=== PATIENT | female | born 1985 | race Two or more races ===

== ENCOUNTER 2025-05-02 07:05 | Day surgery (SDC) | payer MEDICAID, SELFPAY ==
[2025-05-01 09:52] VITALS: BMI 33.4
--- NOTE | 2025-05-01 10:05 | EKG_ITS ---
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
[2025-05-01 10:43] LABS: Basophils # (Auto) 0.0 Thou/mm3 (0.0-0.2); Basophils % (Auto) 1 % (0-2.5); Eosinophils # (Auto) 0.0 Thou/mm3 (0.0-0.5); Eosinophils % (Auto) 1 % (0-10); Hematocrit 39.3 % (36.0-46.0); Hemoglobin 13.6 g/dL (12.0-16.0); Immature Granulocytes Auto 0.02 Thou/mm3 (0.00-0.00); Lymphocytes # (Auto) 1.5 Thou/mm3 (1.0-4.8); Lymphocytes % (Auto) 27 % (10-50); Mean Corpuscular HGB Conc 34.6 g/dl (31.0-37.0); Mean Corpuscular Hemoglobin 29.2 pg (25.0-35.0); Mean Corpuscular Volume 85 fL (80-100); Monocytes # (Auto) 0.5 Thou/mm3 (0.0-0.8); Monocytes % (Auto) 8 % (0-12); Neutrophils # (Auto) 3.5 Thou/mm3 (1.8-7.7); Neutrophils % (Auto) 63 % (37-80); Nucleated Red Blood Cell # 0.00 Thou/mm3 (0.00-0.00); Nucleated Red Blood Cell % 0 /100 WBC (0); Platelet Count 257 Thou/mm3 (140-440); RDW Standard Deviation 41.2 fL (36.4-46.3); Red Blood Count 4.65 Miln/mm3 (4.00-5.20); White Blood Count 5.5 Thou/mm3 (3.6-11.0)
[2025-05-01 10:53] LABS: INR 1.0 (0.9-1.3); Partial Thromboplastin Time 30.1 Seconds (22.0-36.0); Prothrombin Time 11.1 Seconds (9.0-12.2)
[2025-05-01 10:58] LABS: Alanine Aminotransferase 13 U/L (10-49); Albumin, Serum 4.4 gm/dL (3.5-5.0); Albumin/Globulin Ratio 1.6 (1.2-2.2); Alkaline Phosphatase 59 U/L (46-116); Anion Gap 6 (7-16); Aspartate Amino Transferase 18 U/L (0-34); BUN/Creatinine Ratio 17 Ratio (12-20); Beta HCG,Quantitative < 1 mIU/mL (<5.0); Bilirubin,Total 0.7 mg/dL (0.3-1.2); Blood Urea Nitrogen 12 mg/dL (9-23); Calcium 10.1 mg/dL (8.3-10.6); Calcium (Corrected) 10.1 mg/dL (8.5-10.1); Carbon Dioxide 28.1 mMol/L (20.0-31.0); Chloride 106 mMol/L (98-107); Creatinine (Component) 0.7 mg/dL (0.6-1.3); Estimated Creatinine Clearance 113.8 mL/min (>60); Globulin 2.8 gm/dL (2.3-3.5); Glucose 94 mg/dL (74-106); Osmolality,Calculated 279 (275-295); Potassium 4.0 mMol/L (3.4-5.1); Sodium 140 mMol/L (136-145); Total Protein 7.2 gm/dL (5.7-8.2); eGFR > 60 See Note
--- NOTE | 2025-05-01 15:44 | ESHP_ITS ---
RE: CEDRIC MONTEJO : 1985 DATE OF ADMISSION: 05/02/2025 HISTORY OF PRESENT ILLNESS: This is a 39-year-old 5, para 4-0-1-4 with cervical dysplasia who presents for leap cone biopsy of the cervix. ALLERGIES: No known drug allergies. MEDICATIONS: 1. Wellbutrin XL 150 mg 1 p.o. daily. 2. Hydroxyzine 25 mg 1 p.o. p.r.n. 3. Albuterol sulfate inhaler every 4 hours p.r.n., shortness of breath, wheezing. 4. Zepbound 5 mg subcutaneous weekly. OBSTETRIC HISTORY: Four previous full-term deliveries and one spontaneous AB. PAST SURGICAL HISTORY: delivery x4. REVIEW OF SYSTEMS: She denies any chest pain, palpitations, cough, fever, shortness of breath or lower extremity pain. PHYSICAL EXAMINATION: Vital Signs: Blood pressure is 122/70, heart rate 88, respirations 18, temperature 90.6. HEENT: Oropharynx and sclerae are clear. Lungs: Clear to auscultation bilaterally. Heart: Regular rate and rhythm. Abdomen: Old fascial scar noted. Extremities: Nontender. Skin: No gross rashes or lesions. Neurologic: No focal deficit. ASSESSMENT: Severe cervical dysplasia. PLAN: Leap cone biopsy of the cervix. Informed consent was obtained. The patient was made aware of the risks, complications, alternatives, and benefits of the proposed procedure. She agrees. DT: 18:44:35 TT: 19:53:00 Ref: [id number] - TID: [id number] MTDD
[2025-05-02] VITALS (8 sets, daily range): BP systolic 104–114; BP diastolic 72–90; PULSE 72–97; RESP 13–20; TEMP 36.4–36.8; O2SAT 98–100; BMI 33.5
[2025-05-02] MEDS: RINGERS LACTATED 1000 ML 1,000 ML 30 ML IV (08:03)
--- NOTE | 2025-05-02 09:30 | SUR.PHASEI ---
0930 Patient arrived to recovery resting comfortably in [facility], on oxygen L via oxy mask, sleeping and able to arouse with verbal prompting then drifts back to sleep, breathing unlabored, vital signs stable, denies pain, dressing intact to vaginal area; peripad, no bleeding noted, denies nausea, report received from Jg NAYAK and Shai PRICE
--- NOTE | 2025-05-02 09:32 | PD.GYNPROC ---
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 Procedure Date of procedure: 05/02/25 Procedure Performed: LEEP cone biopsy of the cervix Excision of skin tag Indication: High-grade squamous intraepithelial lesion cervix Perianal skin tag Pre-Op diagnosis: High-grade squamous intraepithelial lesion cervix Perianal skin tag Post-Op diagnosis: High-grade squamous intraepithelial lesion cervix Perianal skin tag Anesthesia type: General Procedure description: After proper informed consent was obtained and the patient made aware the risk complication alternative benefits of the proposed procedure she was taken the operating room where she underwent induction of general anesthesia. She is placed in the dorsolithotomy position and she was prepped and draped you sterile fashion. A timeout was performed. A insulated speculum was placed into the vagina. The cervix was circumferentially injected with dilute vasopressin. The cervical branch of the uterine artery at 3:00 and 9:00 were ligated with 0 Vicryl. Using the 2.0 x 1.5 cm loop electrode the transformation zone was excised and inked at 12:00 and sent to pathology. A Top-Hat specimen was obtained of the endocervix using the 1.0 x 1.0 loop electrode. The endocervical canal was curetted with a Kevorkian curette and specimen sent to pathology. Hemostasis was achieved with the ball cautery. Attention was then turned to the 2.5 mm x 2.5 mm skin tag at the anal verge at 12:00. Using the scalpel the cyst skin tag was excised. Hemostasis was achieved with the Bovie. All instruments removed from the vagina and she was reversed from general anesthesia in the supine position and transferred to the recovery room in stable condition. She tolerated procedure well counts were correct. I discussed with her family the nature of her condition and the intraoperative findings expectation for recovery all questions answered. Specimen: other (1. LEEP Cone 2. Top hat. 3. Endocervical curettings. 4. Skin tag. ) Surgical staff Antonio Cuevas CRNA Operation Date: 05/02/25 09:00 <No data on this case meets the specified criteria> Diagnosis Discharge Diagnosis (1) High grade squamous intraepithelial lesion (HGSIL) on Papanicolaou smear: Status: Acute Problem List Completed Was Problem List Reviewed/Reconciled?: Yes
[2025-05-02] MEDS: fentaNYL CIT INJ 50 mCg/ML AMP 2ML IVP (09:59)
--- NOTE | 2025-05-02 10:38 | SUR.PHASEII ---
1038 Patient meets discharge criteria from recovery, awake and alert, breathing unlabored, vital signs stable, denies pain, dressing intact; no bleeding noted, eating ice chips; denies nausea, assisted with dressing into her clothing by her , patient voided in the restroom prior to discharge, discharge instructions given to patient and patients with the assistance of the telephone carton marker machine Marsha ID#[id number], patients signed discharge instructions. Patient given all her belongings prior to discharge, transported via wheelchair and left in a private vehicle.
== END 2025-05-02 10:38 | disposition home or self-care (01) ==
PROVIDERS: PCP Physician Assistant Medical; Referring Provider Specialist; Visit Provider Specialist
PROC: 0UBC7ZZ Excision of Cervix, Via Natural or Artificial Opening (ICD-10-PCS; CPT 57522; principal; 2025-05-02 08:45)
DX: K64.4 Residual hemorrhoidal skin tags (principal); R87.613 High grade squamous intraepithelial lesion on cytologic smear of cervix (HGSIL); Z01.810 Encounter for preprocedural cardiovascular examination
CPT/HCPCS: 57522; 46220; 36415; 80053; 84702; 85025; 85610; 85730; 86850; 86900; 86901; 93005; A4217; A4649; J0131; J0690; J1100; J1885; J2250; J2405; J2598; J2704; J2765; J3010; J3490; J7120; A9270